=== PATIENT | female | born 1990 | race Two or more races ===

== ENCOUNTER 2017-01-05 12:36 | Outpatient (CLI) | payer OTHER ==
[~2017-01-05] VITALS: Ht 167.6 cm; Wt 75.1 kg
[~2017-01-05 12:36] MED LIST: ACET500C5 PO
[2017-01-05 12:45] VITALS: BP 120/75; PULSE 93; RESP 16; Ht 167.6 cm; Wt 75.1 kg
[2017-01-05 13:27] LABS: ADD UMIC YES; URINE BILIRUBIN (Dip) NEGATIVE (NEGATIVE); URINE BLOOD (Dip) NEGATIVE (NEGATIVE); URINE COLOR LT. YELLOW (YELLOW); URINE GLUCOSE (Dip) NEGATIVE (NEGATIVE); URINE KETONES (Dip) NEGATIVE (NEGATIVE); URINE LEUKOCYTE ESTERASE (Dip) 1+ (NEGATIVE); URINE NITRITE (Dip) NEGATIVE (NEGATIVE); URINE TOTAL PROTEIN (Dip) NEGATIVE (NEGATIVE); URINE UROBILINOGEN (Dip) 0.2 E.U./dL (0.1-1.0)
[2017-01-05 13:44] LABS: URINE RBCS NONE SEEN /HPF (0)
[2017-01-05 13:45] LABS: BACTERIA,URINE FEW
[2017-01-05 13:48] LABS: ADD SCAN DIFF NO
--- NOTE | 2017-01-05 13:56 | RADRPT ---
PROCEDURE: OB ultrasound for biophysical profile CLINICAL INDICATION: labor TECHNIQUE: Multiple sonographic images of the pelvis were obtained. Transabdominal views of the g ravid uterus are available for review. The images were reviewed on a PACS workstation. COMPARISON: None FINDINGS: breathing movement = 2/2 tone = 2/2 motion = 2/2 DENZEL = 2/2 DENZEL = 15.4 cm Single live intrauterine with cardiac activity of 126 bpm. position is cephal ic. The placenta is left lateral. The cervix is closed with a length of 4.0 cm. IMPRESSION: 1. Single live intrauterine gestation. 2. Biophysical profile = /8. 3. DENZEL = 15.4 cm. 4. The cervix is closed with a length of 4.0 cm. RPTAT: HH .Chandrika Genao MD, Date Time Electronically viewed and signed by .Chandrika Genao MD, on 01/05/2017 13:55 .G/
[2017-01-05 14:05] LABS: BASOPHILS % 0.1 % (0.0-2.0); EOSINOPHILS # 0.1 10^3/ul (0.0-0.5); EOSINOPHILS % 0.8 % (0.0-7.0); HEMATOCRIT 34.8 % (37.0-47.0); LYMPHOCYTES # 1.9 10^3/ul (0.8-2.9); LYMPHOCYTES % 17.7 % (15.0-51.0); MEAN CORPUSCULAR HEMOGLOBIN 26.3 pg (29.0-33.0); MEAN CORPUSCULAR HGB CONC 31.6 g/dl (32.0-37.0); MEAN CORPUSCULAR VOLUME 83.1 fl (82.0-101.0); MEAN PLATELET VOLUME 9.8 fl (7.4-10.4); MONOCYTE # 0.7 10^3/ul (0.3-0.9); MONOCYTES % 6.3 % (0.0-11.0); NEUTROPHIL # 8.1 10^3/ul (1.6-7.5); NEUTROPHILS % 74.1 % (39.0-77.0); PLATELET COUNT 382 10^3/UL (140-415); RED BLOOD COUNT 4.19 10^6/ul (4.20-5.40); RED CELL DISTRIBUTION WIDTH 13.2 % (11.5-14.5); WHITE BLOOD COUNT 10.9 10^3/ul (4.8-10.8)
[2017-01-05 14:08] LABS: ALBUMIN 3.9 g/dl (3.3-4.9); ALBUMIN/GLOBULIN RATIO 1.3; BILIRUBIN,INDIRECT 0.1 mg/dl (0-1.1); BILIRUBIN,TOTAL 0.1 mg/dl (0.2-1.3); CALCIUM 9.1 mg/dl (8.4-10.2); CREATININE 0.5 mg/dl (0.44-1.00); POTASSIUM 4.5 mmol/L (3.5-5.1); TOTAL PROTEIN 6.9 g/dl (6.1-8.1)
--- NOTE | 2017-01-05 15:48 | TRIAGE ---
OB Triage Datetime Report Generated by CPN: 01/05/2017 15:47 Datetime: 01/05/2017 15:23 Pattern: Normal: <= 5 Contractions in 10 Minutes Contraction Comments: no uc Heart Rate FHR Baseline Rate: 135 Monitor Mode: External US Variability: Moderate 6-25 bpm Accelerations: 15X15 Decelerations: None Category: Category I Pain Assessment Pain Presence: None/Denies Pain Type: N/A Datetime: 01/05/2017 15:00 Labor Evaluation Frequency: occ Monitor Mode: External Duration (sec)2399: 30-40 Quality: Mild Pattern: Normal: <= 5 Contractions in 10 Minutes Resting Tone [place]: Relaxed Heart Rate FHR Baseline Rate: 125 Monitor Mode: External US Variability: Moderate 6-25 bpm Accelerations: 15X15 Decelerations: None Category: Category I Pain Assessment Pain Presence: None/Denies Pain Type: N/A Datetime: 01/05/2017 13:39 Pattern: Normal: <= 5 Contractions in 10 Minutes Resting Tone [place]: Relaxed Contraction Comments: NO UC Heart Rate FHR Baseline Rate: 135 Monitor Mode: External US Variability: Moderate 6-25 bpm Accelerations: 15X15 Decelerations: None Category: Category I Pain Assessment Comments: pain @ lower back, RLQ Datetime: 01/05/2017 12:49 Assessment Type: Triage Maternal Assessment Level of Consciousness: Fully Conscious DTR's/Clonus: DTRs 2+; No Clonus Headache: Denies Blurred Vision: No Respiratory Effort: Unlabored; Regular Rhythm; Equal Expansion Breath Sounds, Left: Clear and Equal Breath Sounds, Right: Clear and Equal Nausea/Vomiting: Denies RUQ Epigastric Pain: Denies Facial Edema: None Fall Risk Assessment History of Falling: (0) No Secondary Diagnosis: (0) No Ambulatory Aid: (0) Bedrest/Nurse Assist IV Therapy: (0) No Gait: (0) Normal/Bedrest/Immobile Mental Status: (0) Oriented to Own Ability Fall Score: 0 Fall Risk Score Definition: No Risk: No action required Datetime: 01/05/2017 12:48 EGA: 30.6 Datetime: 01/05/2017 12:46 Time of Arrival: 01/05/2017 12:33 Arrived By: Ambulatory Arrived From: Home Chief Complaint: pt. came to hospital c/o RLQ pain since 1100am, pain level 10/10, q 10mins apart, also c/o lower back start now Movement: Present Rupture of Membranes: Denies Vaginal Bleeding: None Vaginal Discharge: Denies Recent Sexual Intercouse: Denies Abdominal Trauma: Not Applicable Patient Complaints: Other Time Provider Notified: 01/05/2017 12:57 Provider Notified: Initial Plan: r/o ptl, cbc, cmp, ua, u/s for bpp, cxl. po hydration
--- NOTE | 2017-01-05 16:58 | QN ---
Documentation Comment iup 30 weeks co of abd pain vss exam wnl us wnl nst reacitive a/p iup 30 weeks false labor dc [place] HERBERTH JEAN MD Jan 05, 2017 16:58
== END 2017-01-05 16:00 | disposition home or self-care (01) ==
LOC: OBT 12:36 → L-D 12:37 → OBT 16:00
PROVIDERS: ATTEND Obstetrics & Gynecology
DX: O26.893 Other specified pregnancy related conditions, third trimester (principal); R10.9 Unspecified abdominal pain; Z3A.30 30 weeks gestation of pregnancy
CPT/HCPCS: 36415; 76817; 76818; 80053; 81001; 85025; 87086; Z7500; G0463

== ENCOUNTER 2017-02-05 22:32 | Outpatient (CLI) | payer OTHER ==
[~2017-02-05] VITALS: Ht 167.6 cm; Wt 78.2 kg
[2017-02-05] MEDS ORDERED: PRENAT PO (23:46)
[2017-02-05] MEDS ORDERED: FERR134T PO (23:46)
[2017-02-06 00:09] LABS: ADD UMIC YES; UR ASCORBIC ACID NEGATIVE (NEGATIVE); UR BACTERIA FEW /HPF (NONE SEEN); UR BILIRUBIN (Dip) NEGATIVE (NEGATIVE); UR BLOOD (Dip) 1+ mg/dL (NEGATIVE); UR CLARITY SLIGHTLY CLOUDY (CLEAR); UR COLOR YELLOW (YELLOW); UR GLUCOSE (Dip) NEGATIVE (NEGATIVE); UR KETONES (Dip) NEGATIVE (NEGATIVE); UR LEUKOCYTE ESTERASE (Dip) 3+ Leu/ul (NEGATIVE); UR NITRITE (Dip) NEGATIVE (NEGATIVE); UR RBC 3 /HPF (0-5); UR SPECIFIC GRAVITY (Dip) 1.004 (1.003-1.030); UR SQUAMOUS EPITHELIAL CELL FEW /HPF (FEW); UR TOTAL PROTEIN (Dip) NEGATIVE (NEGATIVE); UR UROBILINOGEN (Dip) NEGATIVE (NEGATIVE)
[2017-02-06 00:16] LABS: ADD SCAN DIFF NO
[2017-02-06 00:17] LABS: BASOPHILS % 0.2 % (0.0-2.0); EOSINOPHILS # 0.1 10^3/ul (0.0-0.5); EOSINOPHILS % 1.1 % (0.0-7.0); HEMOGLOBIN 10.1 g/dl (12.0-16.0); LYMPHOCYTES # 2.2 10^3/ul (0.8-2.9); LYMPHOCYTES % 23.9 % (15.0-51.0); MEAN CORPUSCULAR HEMOGLOBIN 25.5 pg (29.0-33.0); MEAN CORPUSCULAR HGB CONC 31.6 g/dl (32.0-37.0); MEAN CORPUSCULAR VOLUME 80.8 fl (82.0-101.0); MEAN PLATELET VOLUME 10.1 fl (7.4-10.4); MONOCYTE # 0.6 10^3/ul (0.3-0.9); MONOCYTES % 6.6 % (0.0-11.0); NEUTROPHIL # 6.2 10^3/ul (1.6-7.5); NEUTROPHILS % 67.1 % (39.0-77.0); PLATELET COUNT 341 10^3/UL (140-415); RED BLOOD COUNT 3.96 10^6/ul (4.20-5.40); RED CELL DISTRIBUTION WIDTH 14.4 % (11.5-14.5); WHITE BLOOD COUNT 9.3 10^3/ul (4.8-10.8)
[2017-02-06 00:44] LABS: ALBUMIN 3.4 g/dl (3.3-4.9); ALBUMIN/GLOBULIN RATIO 1.17; BILIRUBIN,INDIRECT 0.2 mg/dl (0-1.1); BILIRUBIN,TOTAL 0.2 mg/dl (0.2-1.3); CALCIUM 9.3 mg/dl (8.4-10.2); CREATININE 0.51 mg/dl (0.44-1.00); POTASSIUM 3.7 mmol/L (3.5-5.1); TOTAL PROTEIN 6.3 g/dl (6.1-8.1)
--- NOTE | 2017-02-06 01:17 | RADRPT ---
PROCEDURE: OB ultrasound for biophysical profile CLINICAL INDICATION: well-being. TECHNIQUE: Multiple sonographic images of the gravid uterus performed. The images were reviewed on a PACS workstation. COMPARISON: 01/05/2017 FINDINGS: A single live intrauterine is identified with heart rate of 143 bpm. Fet us is in a cephalic presentation. Placenta is located posteriorly. Biophysical profile: breathing movement = 2/2 tone = 2/2 motion = 2/2 DENZEL = 2/2 DENZEL = 12.0 cm. IMPRESSION: 1. Single live intrauterine gestation. 2. Biophysical profile = 8/8. 3. DENZEL = 12.0 cm. RPTAT: HMVK .Oj Arnett MD, Date Time Electronically viewed and signed by .Oj Arnett MD, MD on 02/06/2017 01:16 .K/
--- NOTE | 2017-02-06 01:18 | RADRPT ---
PROCEDURE: US OB. CLINICAL INDICATION: labor. TECHNIQUE: Multiple sonographic images of the pelvis were obtained. Transabdominal imaging only w as performed. The images were reviewed on a PACS workstation. COMPARISON: 01/05/2017. FINDINGS: Single live intrauterine is identified. Cardiac activity is present with 131 beats per mi [place]. There is a vertex presentation. Measurements: BPD = 35 weeks 1 day. HC = 34 weeks 4 days. AC = 37 weeks 0 days. FL = 36 weeks 1 day. Estimated gestational age of approximately 35 weeks 5 days. The estimated date of delivery is 03/08/2017. The EFW = 2899 g which is at the 76 percentile. The placenta is posterior. IMPRESSION: Single live intrauterine gestation of approximately 35 weeks 5 days. RPTAT: HMVK .Oj Arnett MD, MD Date Time Electronically viewed and signed by .Oj Arnett MD, on 02/06/2017 01:18 .K/
--- NOTE | 2017-02-06 03:27 | PN ---
Triage Information Date/Time February 05, 2017 Weeks of Gestation 35 weeks : 3 Para: 1 Diabetes: none Hypertention: none Additional information 26-year-old with IUP at 35 weeks and 2 days presented with complaint of decreased movement as well as cramping and pain. She also complaining of itching all over her body without any rash for the last 2 days. She could not sleep due to constant itching including palms and soles. She drank fluid still was not feeling movement. Denies any leaking of fluid or vaginal bleeding. Reports she was told that she has a high pulse during her visits. She also complaining of some shortness of breath. Denies any chest pain. Reports occasional dizziness. Reports history of anemia. Currently taking vitamin and iron twice a day. Objective Heart Rate: 130's Contractions: None Exam General appearance: Alert and oriented 4. Patient does not appear to be in any acute distress. Abdomen: Soft, gravid, nontender, fundal height consistent with gestational age. NST: Category 1 Occasional contraction seen on the monitor. Skin: No rash over the body Extremities: No calf tenderness, no click no edema Lungs: Clear to auscultation bilaterally CV: RRR Hematology - 72 Hrs Test 02/05/17 00:05 White Blood Count 9.310^3/ul (4.8-10.8) Red Blood Count 3.9610^6/ul (4.20-5.40) L Hemoglobin 10.1g/dl (12.0-16.0) L Hematocrit 32.0% (37.0-47.0) L Mean Corpuscular Volume 80.8fl (82.0-101.0) L Mean Corpuscular Hemoglobin 25.5pg (29.0-33.0) L Mean Corpuscular Hemoglobin Concent 31.6g/dl (32.0-37.0) L Red Cell Distribution Width 14.4% (11.5-14.5) Platelet Count 30992^3/UL (140-415) Mean Platelet Volume 10.1fl (7.4-10.4) Neutrophils % 67.1% (39.0-77.0) Lymphocytes % 23.9% (15.0-51.0) Monocytes % 6.6% (0.0-11.0) Eosinophils % 1.1% (0.0-7.0) Basophils % 0.2% (0.0-2.0) Nucleated Red Blood Cells % 0.0/100WBC (0.0-0.0) Neutrophils # 6.210^3/ul (1.6-7.5) Lymphocytes # 2.210^3/ul (0.8-2.9) Monocytes # 0.610^3/ul (0.3-0.9) Eosinophils # 0.110^3/ul (0.0-0.5) Basophils # 0.010^3/ul (0.0-0.1) Nucleated Red Blood Cells # 0.010^3/ul (0.0-0.0) Chemistry Test 02/05/17 00:05 Sodium Level 137mmol/L (135-144) Potassium Level 3.7mmol/L (3.5-5.1) Chloride Level 103mmol/L (97-110) Carbon Dioxide Level 22mmol/L (21-31) Anion Gap 16 (8-16) Blood Urea Nitrogen 6mg/dl (7-20) L Creatinine 0.51mg/dl (0.44-1.00) Glucose Level 97mg/dl (70-220) Calcium Level 9.3mg/dl (8.4-10.2) Total Bilirubin 0.2mg/dl (0.2-1.3) Direct Bilirubin 0.00mg/dl (0.00-0.20) Indirect Bilirubin 0.2mg/dl (0-1.1) Aspartate Amino Transf (AST/SGOT) 16IU/L (15-46) Alanine Aminotransferase (ALT/SGPT) 25IU/L (13-69) Alkaline Phosphatase 226IU/L (42-121) H Total Protein 6.3g/dl (6.1-8.1) Albumin 3.4g/dl (3.3-4.9) Globulin 2.90g/dl (1.3-3.2) Albumin/Globulin Ratio 1.17 Results/Medications Result Diagram: 02/05/17 0005 02/05/17 0005 Results 24 hrs Laboratory Tests Test 02/05/17 22:40 Urine Color YELLOW Urine Clarity SLIGHTLY CLOUDY A Urine pH 7.0 Urine Specific [place] 1.004 Urine Ketones NEGATIVE Urine Nitrite NEGATIVE Urine Bilirubin NEGATIVE Urine Urobilinogen NEGATIVE Urine Leukocyte Esterase 3+ H Urine Microscopic RBC 3 Urine Microscopic WBC 24 H Urine Squamous Epithelial Cells FEW Urine Bacteria FEW A Urine Hemoglobin 1+ H Urine Glucose NEGATIVE Urine Total Protein NEGATIVE Imaging Results PROCEDURE: OB ultrasound for biophysical profile CLINICAL INDICATION: well-being. TECHNIQUE: Multiple sonographic images of the gravid uterus performed. The images were reviewed on a PACS workstation. COMPARISON: 01/05/2017 FINDINGS: A single live intrauterine is identified with heart rate of 143 bpm. Fetus is in a cephalic presentation. Placenta is located posteriorly. Biophysical profile: breathing movement = 2/2 tone = 2/2 motion = 2/2 DENZEL = 2/2 DENZEL = 12.0 cm. IMPRESSION: 1. Single live intrauterine gestation. 2. Biophysical profile = 8/8. 3. DENZEL = 12.0 cm. RPTAT: HMVK PROCEDURE: US OB. CLINICAL INDICATION: labor. TECHNIQUE: Multiple sonographic images of the pelvis were obtained. Transabdominal imaging only was performed. The images were reviewed on a PACS workstation. COMPARISON: 01/05/2017. FINDINGS: Single live intrauterine is identified. Cardiac activity is present with 131 beats per minute. There is a vertex presentation. Measurements: BPD = 35 weeks 1 day. HC = 34 weeks 4 days. AC = 37 weeks 0 days. FL = 36 weeks 1 day. Estimated gestational age of approximately 35 weeks 5 days. The estimated date of delivery is 03/08/2017. The EFW = 2899 g which is at the 76 percentile. The placenta is posterior. IMPRESSION: Single live intrauterine gestation of approximately 35 weeks 5 days. RPTAT: HMVK Assessment/Plan IUP at 35 weeks and 2 days, not in labor Decreased movement, NST reactive, category 1, BPP: 8/8 Whole body itching without any rash including palms. Cannot rule out cholestasis of . LFTs normal. Bile acids were sent and pending Shortness of breath,mild tachycardia related to anemia. Oxygen saturation within normal limits. Lungs clear to auscultation. No evidence of DVT or PE. Advised the patient to continue vitamin and iron twice a day Patient was feeling movement after hydration urine consistent with UTI, keflex QID x 7 days DC home. Follow-up in 2 days with triage for NST/BPP Follow-up with bile acids. It is sent out. Will be available in 5 days. Next Patient will be started on ursodiol 300 mg p.o. 3 times daily to continue until have the results. Continue testing twice a week until he is also available. Follow-up with her OB office in 1-2 days after discharge from the hospital with a strict labor precaution and kick count discussed with the patient. Next Patient verbalized understanding. STEPH SHIPLEY MD Feb 06, 2017 03:27
--- NOTE | 2017-02-06 05:26 | TRIAGE ---
OB Triage Datetime Report Generated by CPN: 02/06/2017 05:25 Datetime: 02/05/2017 22:40 Time of Arrival: 02/05/2017 22:27 EGA: 35.2 Arrived By: Wheelchair Arrived From: Home Chief Complaint: c/i cramping, vag pressure, DFM, and generalized itching Movement: Decreased Contractions: Irregular Time Contractions Began: 02/05/2017 16:00 Rupture of Membranes: Denies Vaginal Bleeding: None Vaginal Discharge: Denies Recent Sexual Intercouse: Denies Abdominal Trauma: Not Applicable Patient Complaints: Cramping; Back Pain; Other Time Provider Notified: 02/05/2017 23:20 Provider Notified: Dr Ramachandran Initial Plan: EFM,SVE, PO hydration, CMP,bile caids, CBC, UA, BPP, EFW Datetime: 01/05/2017 12:49 Fall Risk Assessment Fall Score: 0 Fall Risk Score Definition: No Risk: No action required Datetime: 01/05/2017 12:48 EGA: 30.6
[2017-02-09 12:10] LABS: CHENODEOXYCHOLIC ACID 3.4 umol/L (< OR = 3.1); CHOLIC ACID 1.7 umol/L (< OR = 1.8); DEOXYCHOLIC ACID <0.5 umol/L (< OR = 2.4); TOTAL BILE ACIDS 5.1 umol/L (< OR = 6.8)
== END 2017-02-06 03:05 | disposition home or self-care (01) ==
LOC: OBT 22:32 → L-D 22:32 → OBT 02-06 03:05
PROVIDERS: ATTEND Obstetrics & Gynecology
DX: O60.03 Preterm labor without delivery, third trimester (principal); Z3A.35 35 weeks gestation of pregnancy
CPT/HCPCS: 36415; 76815; 76818; 80053; 80076; 81001; 83789; 85025; Z7500; G0463

== ENCOUNTER 2017-02-09 15:23 | Inpatient (IN) | payer OTHER ==
[~2017-02-09] VITALS: Ht 167.6 cm; Wt 79.3 kg
[~2017-02-09 15:23] MED LIST changes: -ACET500C5 PO; +FERR134T PO; +PRENAT PO
[2017-02-09 15:43] VITALS: BP 117/60; PULSE 98; Ht 167.6 cm; Wt 79.3 kg
[2017-02-09] MEDS ORDERED: URSO300C3 PO (15:48)
--- NOTE | 2017-02-09 16:23 | RADRPT ---
PROCEDURE: US OB biophysical profile. CLINICAL INDICATION: decreased movements, abdominal pain TECHNIQUE: Multiple sonographic images of the pelvis were obtained. The images were reviewed on a PACS workstation. COMPARISON: 02/06/2017 FINDINGS: There is a single viable intrauterine gestation. Cardiac activity is present with 142 beats per min [place]. There is a vertex presentation. The placenta is posterior. There is no evidence of placental abruption. There is a normal amount of amniotic fluid with an DENZEL = 8.1 cm. Biophysical profile: movement 2/2 tone 2/2. breathing 2/2 DENZEL 2/2 Total 03/13 RPTAT: AA . IMPRESSION: Normal biophysical profile. . .Pablito Sesay MD, MD Date Time Electronically viewed and signed by .Pablito Sesay MD, MD on 02/09/2017 16:23 .S/
--- NOTE | 2017-02-09 17:55 | HP ---
Date/Time of Note Date/Time of Note DATE: 02/09/17 TIME: 17:53 OB - History Hx of Present Free Text/Dictation @35+wks GA with DENZEL 8 and nick every 3 min : 3 Para: 1 Care: Good Care Ultrasounds: Normal mid trimester US Obstetrical Complications: None Medical Complications: None Past Family/Social History * Past Medical, Surgical, Family and Obstetric Histories reviewed from chart. OB Admission Exam Vital Signs Vital Signs Vital Signs Date Time Temp Pulse Resp B/P Pulse Ox O2 Delivery O2 Flow Rate FiO2 02/09/17 15:43 98.1 98 117/60 Physical Exam Abdomen: WNL Cervical Dilatation: 1cm Effacement: 75% Station: -3 Membranes: Intact Heart Rate: 140's Accelerations: Accelerations Present Decelerations: No Decelerations Varibility: Moderate Contractions on Admission: < 5 Minutes Apart OB Assessment/Plan Reason for admission: observation Plan: Expectant Management Other plan: 1.IV hydration 2.Steroids 3.Continius monitoring JUDITH JIMÉNEZ M.D. Feb 09, 2017 17:55
[2017-02-09] MEDS: LACTATED RINGER'S 1,000 ML IV SCH ×2 (18:19→23:51)
[2017-02-09 18:33] LABS: ADD SCAN DIFF NO
[2017-02-09 18:34] LABS: BASOPHILS % 0.2 % (0.0-2.0); EOSINOPHILS # 0.1 10^3/ul (0.0-0.5); HEMATOCRIT 31.8 % (37.0-47.0); HEMOGLOBIN 10.2 g/dl (12.0-16.0); LYMPHOCYTES # 1.9 10^3/ul (0.8-2.9); LYMPHOCYTES % 20.8 % (15.0-51.0); MEAN CORPUSCULAR HEMOGLOBIN 25.3 pg (29.0-33.0); MEAN CORPUSCULAR HGB CONC 32.1 g/dl (32.0-37.0); MEAN CORPUSCULAR VOLUME 78.9 fl (82.0-101.0); MEAN PLATELET VOLUME 10.2 fl (7.4-10.4); MONOCYTE # 0.6 10^3/ul (0.3-0.9); MONOCYTES % 6.7 % (0.0-11.0); NEUTROPHIL # 6.5 10^3/ul (1.6-7.5); NEUTROPHILS % 70.5 % (39.0-77.0); NUCLEATED RED BLOOD CELLS% 0.2 /100WBC (0.0-0.0); PLATELET COUNT 325 10^3/UL (140-415); RED BLOOD COUNT 4.03 10^6/ul (4.20-5.40); RED CELL DISTRIBUTION WIDTH 14.3 % (11.5-14.5); WHITE BLOOD COUNT 9.2 10^3/ul (4.8-10.8)
[2017-02-09 18:49] LABS: INR 0.95; PROTIME 12.7 Sec (12.2-14.2)
[2017-02-09 18:50] LABS: PARTIAL THROMBOPLASTIN TIME 25.1 Sec (25.0-35.0)
[2017-02-09] MEDS: BETAMET NA PHOS/AC(6 MG/ML) 5ML INJ IM SCH (18:51)
[2017-02-09 18:55] LABS: ADD UMIC YES; UR ASCORBIC ACID NEGATIVE (NEGATIVE); UR BACTERIA MODERATE /HPF (NONE SEEN); UR BILIRUBIN (Dip) NEGATIVE (NEGATIVE); UR BLOOD (Dip) NEGATIVE (NEGATIVE); UR CLARITY SLIGHTLY CLOUDY (CLEAR); UR COLOR STRAW (YELLOW); UR GLUCOSE (Dip) NEGATIVE (NEGATIVE); UR KETONES (Dip) NEGATIVE (NEGATIVE); UR LEUKOCYTE ESTERASE (Dip) 3+ Leu/ul (NEGATIVE); UR NITRITE (Dip) NEGATIVE (NEGATIVE); UR RBC 2 /HPF (0-5); UR SPECIFIC GRAVITY (Dip) 1.005 (1.003-1.030); UR SQUAMOUS EPITHELIAL CELL MODERATE /HPF (FEW); UR TOTAL PROTEIN (Dip) NEGATIVE (NEGATIVE); UR UROBILINOGEN (Dip) NEGATIVE (NEGATIVE)
[2017-02-09] MEDS: URSODIOL 300 MG CAP PO SCH (21:44)
[2017-02-10] MEDS: LACTATED RINGER'S 1,000 ML IV SCH (07:29)
[2017-02-10] MEDS: URSODIOL 300 MG CAP PO SCH ×2 (09:58→17:31)
--- NOTE | 2017-02-10 10:20 | RADRPT ---
PROCEDURE: US OB biophysical profile. CLINICAL INDICATION: decreased movements, low DENZEL TECHNIQUE: Multiple sonographic images of the pelvis were obtained. The images were reviewed on a PACS workstation. COMPARISON: Yesterday FINDINGS: There is a single viable intrauterine gestation. Cardiac activity is present with 137 beats per min [place]. There is a vertex presentation. The placenta is fundal. There is no evidence of placental abruption. There is a normal amount of amniotic fluid with an DENZEL = 11.5 cm. Biophysical profile: movement 2/2 tone 2/2. breathing 2/2 DENZEL 2/2 Total 03/13 RPTAT: AA . IMPRESSION: Normal biophysical profile. . .Pablito Sesay MD, MD Date Time Electronically viewed and signed by .Pablito Sesay MD, MD on 02/10/2017 10:20 .S/
--- NOTE | 2017-02-10 14:49 | QN ---
Documentation Comment patient is seen by the bedside +FM No VB No LOF NoCTXs NST reassuring BPP 03/13 pelvic closed --->dischage with instruction after receiving the second dose of Beta JUDITH JIMÉNEZ M.D. Feb 10, 2017 14:49
[2017-02-10] MEDS: BETAMET NA PHOS/AC(6 MG/ML) 5ML INJ IM SCH (18:29)
== END 2017-02-10 19:00 | disposition home or self-care (01) | DRG 778 ==
LOC: L-D 15:23 → OBT 15:23 → L-D 15:28 → OBT 17:50 → OBG 17:57
PROVIDERS: ADMIT Obstetrics & Gynecology; ATTEND Obstetrics & Gynecology
DX: O60.03 Preterm labor without delivery, third trimester (principal); Z3A.35 35 weeks gestation of pregnancy
CPT/HCPCS: 76818; 81001; 85025; 85610; 85730; 86592; 87086; G0463; J0702; J7120

== ENCOUNTER 2017-02-12 09:35 | Outpatient (CLI) | payer OTHER ==
[~2017-02-12] VITALS: Ht 167.6 cm; Wt 78.5 kg
[2017-02-12 09:45] VITALS: Ht 167.6 cm; Wt 78.5 kg
[2017-02-12] MEDS ORDERED: PRENAT PO (09:45)
[2017-02-12 09:46] VITALS: BP 122/62; PULSE 107
[2017-02-12] MEDS ORDERED: URSO300C21 PO (09:49)
[2017-02-12] MEDS ORDERED: CEPH500C PO (09:50)
--- NOTE | 2017-02-12 10:40 | RADRPT ---
PROCEDURE: OB ultrasound for biophysical profile with DENZEL. CLINICAL INDICATION: Decreased movements. Low DENZEL. TECHNIQUE: Multiple sonographic images of the gravid uterus were obtained. The images were review ed on a PACS workstation. COMPARISON: Exam is 02/10/2017. FINDINGS: breathing movement = 2/2 tone = 2/2 motion = 2/2 DENZEL = 2/2 There is a single viable intrauterine gestation with cardiac and a heart rate of 140 bpm. Ther e is a cephalic presentation and a posterior, grade II placenta. There is no evidence of abruption or placenta previa. DENZEL = 9.4 a cm IMPRESSION: 1. Single viable intrauterine gestation. 2. Biophysical profile = 03/13. 3. DENZEL = 9.48 cm. RPTAT: GG .Froy Walsh MD, Date Time Electronically viewed and signed by .Froy Walsh MD, MD on 02/12/2017 10:39 .P/
--- NOTE | 2017-02-12 14:58 | QN ---
Documentation Comment g1 iup 36 weeks cholestatis of pregancy no complaints vss nst reacitve a/p iup 36 weeks cholestasis of dc [place] HERBERTH JEAN MD Feb 12, 2017 14:58
== END 2017-02-12 11:29 | disposition home or self-care (01) ==
LOC: OBT 09:35 → L-D 09:37 → OBT 11:29
PROVIDERS: ATTEND Obstetrics & Gynecology
DX: O26.613 Liver and biliary tract disorders in pregnancy, third trimester (principal); K83.1 Obstruction of bile duct; Z3A.36 36 weeks gestation of pregnancy
CPT/HCPCS: 76818; Z7500; G0463

== ENCOUNTER 2017-02-15 08:44 | Outpatient (CLI) | payer OTHER ==
[~2017-02-15] VITALS: Ht 167.6 cm; Wt 78.6 kg
[~2017-02-15 08:44] MED LIST changes: +CEPH500C PO; -FERR134T PO; +URSO300C21 PO
[2017-02-15 08:55] VITALS: BP 113/74; PULSE 120; RESP 18
[2017-02-15 08:57] VITALS: Ht 167.6 cm; Wt 78.6 kg
--- NOTE | 2017-02-15 09:22 | RADRPT ---
PROCEDURE: US OB biophysical profile. CLINICAL INDICATION: decreased movements, abdominal pain TECHNIQUE: Multiple sonographic images of the pelvis were obtained. The images were reviewed on a PACS workstation. COMPARISON: 02/12/2017 FINDINGS: There is a single viable intrauterine gestation. Cardiac activity is present with 152 beats per min [place]. There is a vertex presentation. The placenta is posterior. There is no evidence of placental abruption. There is a normal amount of amniotic fluid with an DENZEL = 11.5 cm. Biophysical profile: movement 2/2 tone 2/2. breathing 2/2 DENZEL 2/2 Total 03/13 RPTAT: AA . IMPRESSION: Normal biophysical profile. . .Pablito Sesay MD, MD Date Time Electronically viewed and signed by .Pablito Sesay MD, MD on 02/15/2017 09:22 .S/
[2017-02-15 11:10] LABS: ALBUMIN 3.8 g/dl (3.3-4.9); ALBUMIN/GLOBULIN RATIO 1.22; BILIRUBIN,INDIRECT 0.1 mg/dl (0-1.1); BILIRUBIN,TOTAL 0.1 mg/dl (0.2-1.3); CALCIUM 9.2 mg/dl (8.4-10.2); CREATININE 0.5 mg/dl (0.44-1.00); POTASSIUM 3.8 mmol/L (3.5-5.1); TOTAL PROTEIN 6.9 g/dl (6.1-8.1)
--- NOTE | 2017-02-15 13:23 | CONS ---
Date/Time of Note Date/Time of Note DATE: 02/15/17 TIME: :13 Consultation Date/Type/Reason Admit Date/Time February 15, 2070 OB triage visit Reason for Consultation This patient is a 26 years old 3 para 1 1 with estimated date of confinement March 10, 2017 which makes her 36 weeks and 5 days now She is an established patient with cholestasis of ,currently placed on ursodiol 300 mg 3 times a day She is still complaining of itching all over her body especially on her hand and chest she was discharged to triage for further monitoring on examination . Patient is a well-developed well-nourished lady near term .Does have complained of itching on the palm of her hand and other part of her body Her general vital signs are normal with blood pressure 113/74 pulse rate 120 respiration 18 temperature 98.0 Constitutional: No chills, No diaphoresis, No disoriented, No febrile, No improved, No no complaints, No other, No poor po, No requiring IVF, No requiring O2 Eyes: No discharge, No no complaints, No other, No pain, No redness, No visual change ENT: No bleeding, No congestion, No discharge, No dysphagia, No no complaints, No other, No pain, No sore throat Respiratory: No cough, No no complaints, No other, No pain, No pleuritic pain, No shortness of breath, No sputum, No wheezing Cardiovascular: No chest pain, No edema, No lightheadedness, No no complaints, No orthopenea, No other, No palpitations, No paroxysmal nocturnal dyspnea Gastrointestinal: No blood, No constipation, No decreased appetite, No diarrhea , No flatus, No nausea, No no complaints, No other, No pain, No passing stool, No vomiting Genitourinary: other (Pelvic exam was not performed due to the fact that she does not have any contractions), No bleeding, No discharge, No dysuria, No flank pain, No hematuria, No no complaints Musculoskeletal: No back pain, No bone/joint pain, No neck pain, No no complaints, No other, No restricted range of motion, No swelling Skin: other (Pruritus of her palm of her hand with sole of her foot as well as her chest area), No bruising, No erythema, No laceration, No no complaints, No pruritis, No rash, No skin lesions Neurologic: No confusion, No dizziness, No focal-weakness, No headache, No no complaints, No other, No seizure, No syncope Endocrine: other (Knee-jerk reflexes normal) Additional Comments Laboratory Tests Test 02/15/17 10:29 Sodium Level 132mmol/L Potassium Level 3.8mmol/L Chloride Level 102mmol/L Carbon Dioxide Level 24mmol/L Anion Gap 10 Blood Urea Nitrogen 6mg/dl Creatinine 0.50mg/dl Glucose Level 103mg/dl Calcium Level 9.2mg/dl Total Bilirubin 0.1mg/dl Direct Bilirubin 0.00mg/dl Indirect Bilirubin 0.1mg/dl Aspartate Amino Transf (AST/SGOT) 18IU/L Alanine Aminotransferase (ALT/SGPT) 24IU/L Alkaline Phosphatase 220IU/L Total Protein 6.9g/dl Albumin 3.8g/dl Globulin 3.10g/dl Albumin/Globulin Ratio 1.22 She does have some itching in the palms of her hands and sole of her foot as well as in her chest area heart rate tracing is normal with fairly good variability and acceleration no decelerations . She does have occasional contractions but she dos not seem to be in active labor . Her lab studies and liver function tests are basically normal including electrolytes SGOT and SGPT, total bilirubin direct and indirect bilirubin are WNL.. on ultrasound study her DENZEL is 11.5 cm . The report is a single viable intrauterine gestation with heart rate of 152 bpm, in vertex presentation, placenta posterior biophysical profile 03/13 The result of these tests were given to Dr. Vanessa Social History Smoking Status: Never smoker Exam/Review of Systems Vital Signs Vitals Vital Signs Date Time Temp Pulse Resp B/P Pulse Ox O2 Delivery O2 Flow Rate FiO2 02/15/17 08:55 98.0 120 18 113/74 Room Air Results Result Diagram: 02/15/17 1029 Results 24 hrs Laboratory Tests Test 02/15/17 10:29 Sodium Level 132 L Potassium Level 3.8 Chloride Level 102 Carbon Dioxide Level 24 Anion Gap 10 Blood Urea Nitrogen 6 L Creatinine 0.50 Glucose Level 103 Calcium Level 9.2 Total Bilirubin 0.1 L Direct Bilirubin 0.00 Indirect Bilirubin 0.1 Aspartate Amino Transf (AST/SGOT) 18 Alanine Aminotransferase (ALT/SGPT) 24 Alkaline Phosphatase 220 H Total Protein 6.9 Albumin 3.8 Globulin 3.10 Albumin/Globulin Ratio 1.22 ELSI CHAUDHARY MD Feb 15, 2017 13:22
--- NOTE | 2017-02-15 13:50 | TRIAGE ---
OB Triage Datetime Report Generated by CPN: 02/15/2017 13:49 Datetime: 02/15/2017 13:01 Labor Evaluation Frequency: IRREG Monitor Mode: External Duration (sec)2399: 60-90 Pattern: Normal: <= 5 Contractions in 10 Minutes Resting Tone Gisela: Relaxed Heart Rate FHR Baseline Rate: 140 Monitor Mode: External US FHR Baseline Changes: No Baseline Change Variability: Moderate 6-25 bpm Accelerations: 15X15 Decelerations: None Category: Category I Datetime: 02/15/2017 11:59 Labor Evaluation Frequency: IRREG Monitor Mode: External Duration (sec)2399: 60-90 Pattern: Normal: <= 5 Contractions in 10 Minutes Resting Tone Gisela: Relaxed Heart Rate FHR Baseline Rate: 140 Monitor Mode: External US Variability: Moderate 6-25 bpm Accelerations: 15X15 Decelerations: None Category: Category I Datetime: 02/15/2017 09:41 Labor Evaluation Frequency: IRREG Monitor Mode: External Duration (sec)2399: 50-90 Pattern: Normal: <= 5 Contractions in 10 Minutes Resting Tone Gisela: Relaxed Heart Rate FHR Baseline Rate: 140 Monitor Mode: External US Variability: Moderate 6-25 bpm Accelerations: 15X15 Decelerations: None Category: Category I Datetime: 02/15/2017 09:29 Assessment Type: Admission Assessment Maternal Assessment Level of Consciousness: Fully Conscious DTR's/Clonus: DTRs 2+; No Clonus Headache: Denies Blurred Vision: No Respiratory Effort: Unlabored; Regular Rhythm; Equal Expansion Breath Sounds, Left: Clear and Equal Breath Sounds, Right: Clear and Equal Nausea/Vomiting: Denies RUQ Epigastric Pain: Denies Lower Extremities Edema: None Degree: None Upper Extremities Edema: None Degree: None Facial Edema: None Fall Risk Assessment History of Falling: (0) No Secondary Diagnosis: (0) No Ambulatory Aid: (0) Bedrest/Nurse Assist IV Therapy: (0) No Gait: (0) Normal/Bedrest/Immobile Mental Status: (0) Oriented to Own Ability Fall Score: 0 Fall Risk Score Definition: No Risk: No action required Datetime: 02/15/2017 09:13 Labor Evaluation Frequency: IRREG Monitor Mode: External Duration (sec)2399: 60-90 Pattern: Normal: <= 5 Contractions in 10 Minutes Resting Tone Gisela: Relaxed Heart Rate FHR Baseline Rate: 140 Monitor Mode: External US Variability: Minimal - Undetectable to <=5 bpm Decelerations: Variable Category: Category II Datetime: 02/15/2017 09:00 Time of Arrival: 02/15/2017 07:40 EGA: 36.5 Arrived By: Ambulatory Arrived From: Home Chief Complaint: ITCHING. H/ OF CHOLESTASIS. F/U NST/BPP Movement: Present Contractions: Irregular Rupture of Membranes: Denies Vaginal Bleeding: None Vaginal Discharge: Denies Recent Sexual Intercouse: Denies Abdominal Trauma: Not Applicable Patient Complaints: Cramping Time Provider Notified: 02/15/2017 09:36 Provider Notified: DR ALMONTE Initial Plan: TOCO/ US, BPP, CMP Datetime: 02/15/2017 08:49 Pain Assessment Pain Scale: 6 Pain Presence: Intermittent Pain Type: Cramping Pain Location: Abdomen Pain Relief Measures: Comfort Measures Datetime: 02/12/2017 11:17 Stage of : OB Triage Datetime: 02/12/2017 10:59 Labor Evaluation Frequency: OCCAS Monitor Mode: External Duration (sec)2399: 50-70 Pattern: Normal: <= 5 Contractions in 10 Minutes Resting Tone Gisela: Relaxed Heart Rate FHR Baseline Rate: 145 Monitor Mode: External US Variability: Moderate 6-25 bpm Accelerations: 10X10 Decelerations: None Category: Category I Pain Assessment Pain Scale: 0 Pain Presence: None/Denies Pain Type: N/A Pain Goal: 3 Pain Relief Measures: Comfort Measures Datetime: 02/12/2017 10:07 Stage of : OB Triage Datetime: 02/12/2017 09:59 Stage of : OB Triage Datetime: 02/12/2017 09:52 Stage of : OB Triage Assessment Type: Triage Time of Arrival: 02/12/2017 09:35 EGA: 36.2 Arrived By: Ambulatory Arrived From: Home Chief Complaint: f/u cholest Maternal Assessment Level of Consciousness: Fully Conscious DTR's/Clonus: DTRs 2+; No Clonus Headache: Denies Blurred Vision: No Respiratory Effort: Unlabored; Regular Rhythm; Equal Expansion Breath Sounds, Left: Clear and Equal Breath Sounds, Right: Clear and Equal Nausea/Vomiting: Denies RUQ Epigastric Pain: Denies Facial Edema: None Temperature Route: Axillary Fall Risk Assessment History of Falling: (0) No Secondary Diagnosis: (0) No Ambulatory Aid: (0) Bedrest/Nurse Assist IV Therapy: (0) No Gait: (0) Normal/Bedrest/Immobile Mental Status: (0) Oriented to Own Ability Fall Score: 0 Fall Risk Score Definition: No Risk: No action required Labor Evaluation Frequency: 0 Monitor Mode: External Resting Tone Gisela: Relaxed Heart Rate FHR Baseline Rate: 150 Monitor Mode: External US Variability: Minimal - Undetectable to <=5 bpm Decelerations: None Category: Category II Pain Assessment Pain Scale: 0 Pain Presence: None/Denies Pain Type: N/A Pain Goal: 3 Pain Relief Measures: Comfort Measures Datetime: 02/12/2017 09:42 Time of Arrival: 02/12/2017 09:35 EGA: 36.2 Arrived By: Ambulatory Arrived From: Home Chief Complaint: F/U CHOLESTASIS, DISCHARGED ON SUNDAY FROM 2 NE Movement: Present Contractions: Denies/Absent Rupture of Membranes: Denies Vaginal Bleeding: None Vaginal Discharge: Denies Recent Sexual Intercouse: Denies Abdominal Trauma: Not Applicable Patient Complaints: None Time Provider Notified: 02/12/2017 10:07 Provider Notified: ABUSLEME Initial Plan: MONITOR, BPP/DENZEL Datetime: 02/10/2017 18:34 Labor Evaluation Frequency: 0 Monitor Mode: External Resting Tone Gisela: Relaxed Heart Rate FHR Baseline Rate: 120 Monitor Mode: External US FHR Baseline Changes: No Baseline Change Variability: Moderate 6-25 bpm Accelerations: 15X15 Decelerations: None Category: Category I Datetime: 02/10/2017 18:00 Labor Evaluation Frequency: 0 Monitor Mode: External Resting Tone Gisela: Relaxed Heart Rate FHR Baseline Rate: 125 Monitor Mode: External US FHR Baseline Changes: No Baseline Change Variability: Moderate 6-25 bpm Accelerations: 15X15 Decelerations: None Category: Category I Datetime: 02/10/2017 17:00 Labor Evaluation Frequency: 0 Monitor Mode: External Resting Tone Gisela: Relaxed Heart Rate FHR Baseline Rate: 120 Monitor Mode: External US FHR Baseline Changes: No Baseline Change Variability: Moderate 6-25 bpm Accelerations: 15X15 Decelerations: None Category: Category I Datetime: 02/10/2017 16:36 Stage of : Antepartum Temperature Route: Oral Pain Assessment Pain Scale: 0 Pain Presence: None/Denies Datetime: 02/10/2017 16:32 Stage of : Antepartum Datetime: 02/10/2017 16:00 Labor Evaluation Frequency: 0 Monitor Mode: External Resting Tone Gisela: Relaxed Heart Rate FHR Baseline Rate: 150 Monitor Mode: External US FHR Baseline Changes: No Baseline Change Variability: Moderate 6-25 bpm Accelerations: 15X15 Decelerations: None Category: Category I Datetime: 02/10/2017 15:00 Labor Evaluation Frequency: 0 Monitor Mode: External Resting Tone Gisela: Relaxed Heart Rate FHR Baseline Rate: 140 Monitor Mode: External US FHR Baseline Changes: No Baseline Change Variability: Moderate 6-25 bpm Accelerations: 15X15 Decelerations: None Category: Category I Datetime: 02/10/2017 14:00 Labor Evaluation Frequency: 0 Monitor Mode: External Resting Tone Gisela: Relaxed Heart Rate FHR Baseline Rate: 130 Monitor Mode: External US FHR Baseline Changes: No Baseline Change Variability: Moderate 6-25 bpm Accelerations: 15X15 Decelerations: None Category: Category I Datetime: 02/10/2017 13:00 Labor Evaluation Frequency: 0 Monitor Mode: External Resting Tone Gisela: Relaxed Heart Rate FHR Baseline Rate: 130 Monitor Mode: External US FHR Baseline Changes: No Baseline Change Variability: Moderate 6-25 bpm Accelerations: 15X15 Decelerations: None Category: Category I Datetime: 02/10/2017 12:00 Monitor Mode: External Resting Tone Gisela: Relaxed Heart Rate FHR Baseline Rate: 130 Monitor Mode: External US FHR Baseline Changes: No Baseline Change Variability: Moderate 6-25 bpm Accelerations: 15X15 Decelerations: None Category: Category I Datetime: 02/10/2017 11:11 Stage of : Antepartum Datetime: 02/10/2017 11:08 Labor Evaluation Frequency: 0 Monitor Mode: External Resting Tone Gisela: Relaxed Heart Rate FHR Baseline Rate: 130 Monitor Mode: External US FHR Baseline Changes: No Baseline Change Variability: Moderate 6-25 bpm Accelerations: 15X15 Decelerations: None Category: Category I Datetime: 02/10/2017 10:00 Labor Evaluation Frequency: 0 Monitor Mode: External Resting Tone Gisela: Relaxed Heart Rate FHR Baseline Rate: 130 Monitor Mode: External US FHR Baseline Changes: No Baseline Change Variability: Moderate 6-25 bpm Accelerations: 15X15 Decelerations: None Category: Category I Datetime: 02/10/2017 09:00 Labor Evaluation Frequency: 0 Monitor Mode: External Resting Tone Gisela: Relaxed Heart Rate FHR Baseline Rate: 130 Monitor Mode: External US FHR Baseline Changes: No Baseline Change Variability: Moderate 6-25 bpm Accelerations: 15X15 Decelerations: None Category: Category I Datetime: 02/10/2017 08:59 Stage of : Antepartum Datetime: 02/10/2017 08:00 Labor Evaluation Frequency: 0 Monitor Mode: External Resting Tone Gisela: Relaxed Heart Rate FHR Baseline Rate: 130 Monitor Mode: External US FHR Baseline Changes: No Baseline Change Variability: Moderate 6-25 bpm Accelerations: 15X15 Decelerations: None Category: Category I Datetime: 02/10/2017 07:45 Assessment Type: Ongoing Assessment Maternal Assessment Level of Consciousness: Fully Conscious DTR's/Clonus: DTRs 2+; No Clonus Headache: Denies Blurred Vision: No Respiratory Effort: Unlabored; Regular Rhythm; Equal Expansion Breath Sounds, Left: Clear and Equal Breath Sounds, Right: Clear and Equal Nausea/Vomiting: Denies RUQ Epigastric Pain: Denies Lower Extremities Edema: None Degree: None Upper Extremities Edema: None Degree: None Facial Edema: None Fall Risk Assessment History of Falling: (0) No Secondary Diagnosis: (0) No Ambulatory Aid: (0) Bedrest/Nurse Assist IV Therapy: (20) Yes Gait: (0) Normal/Bedrest/Immobile Mental Status: (0) Oriented to Own Ability Fall Score: 20 Fall Risk Score Definition: No Risk: No action required Datetime: 02/10/2017 06:55 Labor Evaluation Frequency: occasional Monitor Mode: External Duration (sec)2399: 60-120 Quality: Mild Pattern: Normal: <= 5 Contractions in 10 Minutes Resting Tone Gisela: Relaxed Heart Rate FHR Baseline Rate: 130 Monitor Mode: External US FHR Baseline Changes: No Baseline Change Variability: Moderate 6-25 bpm Accelerations: 15X15 Decelerations: None Category: Category I Pain Assessment Pain Scale: 0 Pain Presence: None/Denies Pain Type: N/A Datetime: 02/10/2017 06:00 Labor Evaluation Frequency: occasional Monitor Mode: External Duration (sec)2399: 60-120 Quality: Mild Pattern: Normal: <= 5 Contractions in 10 Minutes Resting Tone Gisela: Relaxed Heart Rate FHR Baseline Rate: 120 Monitor Mode: External US FHR Baseline Changes: No Baseline Change Variability: Moderate 6-25 bpm Accelerations: 15X15 Decelerations: Variable Category: Category II Pain Assessment Pain Scale: 0 Pain Presence: None/Denies Pain Type: N/A Datetime: 02/10/2017 05:00 Labor Evaluation Frequency: none Monitor Mode: External Resting Tone Gisela: Relaxed Heart Rate FHR Baseline Rate: 120 Monitor Mode: External US FHR Baseline Changes: No Baseline Change Variability: Moderate 6-25 bpm Accelerations: 15X15 Decelerations: None Category: Category I Pain Assessment Pain Scale: 0 Pain Presence: None/Denies Pain Type: N/A Datetime: 02/10/2017 04:00 Labor Evaluation Frequency: irregular Monitor Mode: External Duration (sec)2399: 60-160 Quality: Mild Pattern: Normal: <= 5 Contractions in 10 Minutes Resting Tone Gisela: Relaxed Contraction Comments: pt denies feeling contractions Heart Rate FHR Baseline Rate: 120 Monitor Mode: External US FHR Baseline Changes: No Baseline Change Variability: Moderate 6-25 bpm Accelerations: 15X15 Decelerations: None Category: Category I Pain Assessment Pain Scale: 0 Pain Presence: None/Denies Pain Type: N/A Datetime: 02/10/2017 03:00 Stage of : Antepartum Labor Evaluation Frequency: irregular Monitor Mode: External Duration (sec)2399: 60-180 Quality: Mild Resting Tone Gisela: Relaxed Heart Rate FHR Baseline Rate: 115 Monitor Mode: External US FHR Baseline Changes: No Baseline Change Variability: Moderate 6-25 bpm Accelerations: 15X15 Decelerations: None Category: Category I Pain Assessment Pain Scale: 0 Pain Presence: None/Denies Pain Type: N/A Datetime: 02/10/2017 02:00 Labor Evaluation Frequency: X3 Monitor Mode: External Duration (sec)2399: 50 Quality: Mild Resting Tone Gisela: Relaxed Heart Rate FHR Baseline Rate: 130 Monitor Mode: External US FHR Baseline Changes: No Baseline Change Variability: Moderate 6-25 bpm Accelerations: 15X15 Decelerations: None Category: Category I Datetime: 02/10/2017 01:38 Contraction Comments: ZERO ADJ. Datetime: 02/10/2017 01:00 Labor Evaluation Frequency: none Monitor Mode: External Duration (sec)2399: none Pattern: Normal: <= 5 Contractions in 10 Minutes Heart Rate FHR Baseline Rate: 130 Monitor Mode: External US FHR Baseline Changes: No Baseline Change Variability: Moderate 6-25 bpm Accelerations: 15X15 Datetime: 02/10/2017 00:00 Labor Evaluation Frequency: X2 Monitor Mode: External Quality: Mild Resting Tone Gisela: Relaxed Heart Rate FHR Baseline Rate: 130 Monitor Mode: External US FHR Baseline Changes: No Baseline Change Variability: Moderate 6-25 bpm Accelerations: 15X15 Category: Category I Datetime: 02/09/2017 23:53 Temperature Route: Oral Pain Assessment Pain Scale: 0 Datetime: 02/09/2017 23:00 Labor Evaluation Frequency: OCC Monitor Mode: External Resting Tone Gisela: Relaxed Heart Rate FHR Baseline Rate: 125 Monitor Mode: External US FHR Baseline Changes: No Baseline Change Variability: Moderate 6-25 bpm Accelerations: 15X15 Decelerations: None Category: Category I Datetime: 02/09/2017 22:00 Labor Evaluation Frequency: x6 Monitor Mode: External Duration (sec)2399: 60-90 Quality: Mild Resting Tone Gisela: Relaxed Heart Rate FHR Baseline Rate: 130 Monitor Mode: External US FHR Baseline Changes: No Baseline Change Variability: Moderate 6-25 bpm Accelerations: 15X15 Decelerations: None Category: Category I Datetime: 02/09/2017 21:00 Labor Evaluation Frequency: x3 Monitor Mode: External Duration (sec)2399: 60 Quality: Mild Resting Tone Gisela: Relaxed Heart Rate FHR Baseline Rate: 140 Monitor Mode: External US FHR Baseline Changes: No Baseline Change Variability: Moderate 6-25 bpm Accelerations: 15X15 Decelerations: None Category: Category I Datetime: 02/09/2017 20:00 Labor Evaluation Frequency: 2-4 Monitor Mode: External Duration (sec)2399: 90 Quality: Mild Resting Tone Gisela: Relaxed Heart Rate FHR Baseline Rate: 130 Monitor Mode: External US FHR Baseline Changes: No Baseline Change Variability: Moderate 6-25 bpm Accelerations: 15X15 Decelerations: None Category: Category I Datetime: 02/09/2017 19:41 Assessment Type: Ongoing Assessment Maternal Assessment Level of Consciousness: Fully Conscious Headache: Denies Blurred Vision: No Respiratory Effort: Unlabored; Regular Rhythm; Equal Expansion Nausea/Vomiting: Denies RUQ Epigastric Pain: Denies Lower Extremities Edema: None Upper Extremities Edema: HANDS 1 + Facial Edema: None Temperature Route: Oral Fall Risk Assessment History of Falling: (0) No Secondary Diagnosis: (0) No Ambulatory Aid: (0) Bedrest/Nurse Assist IV Therapy: (20) Yes Gait: (0) Normal/Bedrest/Immobile Mental Status: (0) Oriented to Own Ability Fall Score: 20 Fall Risk Score Definition: No Risk: No action required Pain Assessment Pain Scale: 0 Datetime: 02/09/2017 17:51 Stage of : OB Triage Datetime: 02/09/2017 17:29 Labor Evaluation Frequency: 3-5 Monitor Mode: External Duration (sec)2399: 60-80 Quality: Mild Pattern: Normal: <= 5 Contractions in 10 Minutes Resting Tone Gisela: Relaxed Heart Rate FHR Baseline Rate: 135 Monitor Mode: External US Variability: Moderate 6-25 bpm Decelerations: None Category: Category I Pain Assessment Pain Scale: 4 Pain Presence: Intermittent Pain Type: Cramping Pain Location: Abdomen Pain Goal: 3 Pain Relief Measures: Comfort Measures Datetime: 02/09/2017 17:24 Stage of : OB Triage Datetime: 02/09/2017 17:16 Vaginal Exam Dilatation (cms): 1.5 Effacement (%): 50 Station: -3 Exam By: S TANA Vaginal Bleeding: None Cervix, Consistency: Soft Cervix, Position: Posterior Datetime: 02/09/2017 16:40 Labor Evaluation Frequency: 3-5 Monitor Mode: External Duration (sec)2399: 60-80 Quality: Mild Pattern: Normal: <= 5 Contractions in 10 Minutes Resting Tone Gisela: Relaxed Heart Rate FHR Baseline Rate: 135 Monitor Mode: External US Variability: Moderate 6-25 bpm Accelerations: 10X10 Decelerations: None Category: Category I Pain Assessment Pain Scale: 5 Pain Presence: Intermittent Pain Type: Cramping Pain Location: Abdomen Pain Goal: 3 Pain Relief Measures: Comfort Measures Datetime: 02/09/2017 15:54 Stage of : OB Triage Datetime: 02/09/2017 15:39 Stage of : OB Triage Assessment Type: Triage Maternal Assessment Level of Consciousness: Fully Conscious DTR's/Clonus: DTRs 2+; No Clonus Headache: Denies Blurred Vision: No Respiratory Effort: Unlabored; Regular Rhythm; Equal Expansion Breath Sounds, Left: Clear and Equal Breath Sounds, Right: Clear and Equal Nausea/Vomiting: Denies RUQ Epigastric Pain: Denies Facial Edema: None Temperature Route: Axillary Fall Risk Assessment History of Falling: (0) No Secondary Diagnosis: (0) No Ambulatory Aid: (0) Bedrest/Nurse Assist IV Therapy: (0) No Gait: (0) Normal/Bedrest/Immobile Mental Status: (0) Oriented to Own Ability Fall Score: 0 Fall Risk Score Definition: No Risk: No action required Labor Evaluation Frequency: 0 Monitor Mode: External Resting Tone Gisela: Relaxed Heart Rate FHR Baseline Rate: 140 Monitor Mode: External US Variability: Moderate 6-25 bpm Accelerations: 10X10 Decelerations: None Category: Category I Pain Assessment Pain Scale: 9 Pain Presence: Intermittent (Annotations: OCCURS OCCASIONALLY WHEN WALKING) Pain Type: Pressure Pain Location: Perineum Pain Goal: 3 Pain Relief Measures: Comfort Measures Datetime: 02/09/2017 15:38 Time of Arrival: 02/09/2017 15:12 EGA: 35.6 Arrived By: Ambulatory Arrived From: Home Chief Complaint: F/U CHOLESTASIS, BILE ACID RESULTS. DENIES BLEEDING OR LEAKING. OCCAS UC'S Movement: Present Contractions: Denies/Absent Rupture of Membranes: Denies Vaginal Bleeding: None Vaginal Discharge: Denies Recent Sexual Intercouse: Denies Abdominal Trauma: Not Applicable Patient Complaints: Cramping Time Provider Notified: 02/09/2017 15:55 Provider Notified: TINO Initial Plan: MONITOR, BPP/DENZEL Datetime: 02/06/2017 02:43 Stage of : OB Triage Heart Rate FHR Baseline Rate: 135 Monitor Mode: External US Variability: Moderate 6-25 bpm Accelerations: 15X15 Category: Category I Pain Assessment Pain Scale: 0 Pain Presence: None/Denies Pain Type: N/A Datetime: 02/06/2017 01:55 Quality: Mild Pattern: Normal: <= 5 Contractions in 10 Minutes Resting Tone Gisela: Relaxed Heart Rate FHR Baseline Rate: 130 Monitor Mode: External US FHR Baseline Changes: No Baseline Change Variability: Moderate 6-25 bpm Accelerations: 15X15 Decelerations: None Category: Category I Pain Assessment Pain Scale: 0 Pain Presence: None/Denies Pain Type: N/A Datetime: 02/06/2017 00:53 Quality: Mild Pattern: Normal: <= 5 Contractions in 10 Minutes Resting Tone Gisela: Relaxed Heart Rate FHR Baseline Rate: 135 Monitor Mode: External US Variability: Moderate 6-25 bpm Accelerations: 15X15 Decelerations: None Category: Category I Datetime: 02/06/2017 00:13 Stage of : OB Triage Monitor Mode: External Pattern: Normal: <= 5 Contractions in 10 Minutes Resting Tone Gisela: Relaxed Heart Rate FHR Baseline Rate: 140 Monitor Mode: External US Variability: Moderate 6-25 bpm Accelerations: 15X15 Decelerations: None Category: Category I Datetime: 02/05/2017 23:20 Stage of : OB Triage Monitor Mode: External Quality: Mild Pattern: Normal: <= 5 Contractions in 10 Minutes Resting Tone Gisela: Relaxed Heart Rate FHR Baseline Rate: 130 Monitor Mode: External US FHR Baseline Changes: No Baseline Change Variability: Moderate 6-25 bpm Accelerations: 15X15 Datetime: 02/05/2017 23:12 Vaginal Exam Dilatation (cms): 0.0 Effacement (%): 0 Station: -4 Exam By: Angie Neri Membrane Status: Intact Vaginal Bleeding: None Cervix, Consistency: Soft Cervix, Position: Posterior Datetime: 02/05/2017 22:50 Stage of : OB Triage Maternal Assessment Level of Consciousness: Fully Conscious Headache: Denies Blurred Vision: No Nausea/Vomiting: Denies RUQ Epigastric Pain: Denies Facial Edema: None Labor Evaluation Frequency: placed Monitor Mode: External Resting Tone Gisela: Relaxed Monitor Mode: External US Comments: FHT 140 Pain Assessment Pain Scale: 2 Pain Presence: Intermittent Pain Type: Cramping Pain Location: Abdomen Datetime: 02/05/2017 22:40 EGA: 35.2 Datetime: 01/05/2017 12:49 Fall Score: 0 Fall Risk Score Definition: No Risk: No action required Datetime: 01/05/2017 12:48 EGA: 30.6
== END 2017-02-15 13:40 | disposition home or self-care (01) ==
LOC: L-D 08:44 → OBT 08:44
PROVIDERS: ATTEND Obstetrics & Gynecology
DX: O26.613 Liver and biliary tract disorders in pregnancy, third trimester (principal); K83.1 Obstruction of bile duct; O26.893 Other specified pregnancy related conditions, third trimester; L29.9 Pruritus, unspecified; Z3A.36 36 weeks gestation of pregnancy
CPT/HCPCS: 76818; 80053

== ENCOUNTER 2017-02-17 08:41 | Inpatient (IN) | payer OTHER ==
[~2017-02-17] VITALS: Ht 167.6 cm; Wt 79.2 kg
[2017-02-17] MEDS ORDERED: FER325 PO (09:05)
[2017-02-17 09:06] VITALS: BP 120/65; PULSE 111; RESP 18
[2017-02-17 09:07] VITALS: Ht 167.6 cm; Wt 79.2 kg
--- NOTE | 2017-02-17 10:23 | RADRPT ---
PROCEDURE: US biophysical profile. CLINICAL INDICATION: Cholestasis. TECHNIQUE: Multiple sonographic images of the uterus were obtained. The images were revi ewed on a PACS workstation. COMPARISON: 02/15/2017. FINDINGS: There is a single live intrauterine gestation. heart rate is 131 beats per minute. The position is cephalic. The placenta is posterior grade II with no abruption or previa. The DENZEL is 8.9 cm. (Normal = 5-20 cm.) Breathing Movement: 2 Gross Body Movement: 2 Tone: 2 Qualitative Amniotic Fluid Volume: 2 TOTAL: 8 IMPRESSION: 1. The biophysical score is 8/8. RPTAT: QQ .Bebo Trevizo MD, MD Date Time Electronically viewed and signed by .Bebo Trevizo MD, on 02/17/2017 10:22 .R/
[2017-02-17 10:27] LABS: ALBUMIN 3.7 g/dl (3.3-4.9); ALBUMIN/GLOBULIN RATIO 1.19; BILIRUBIN,INDIRECT 0.1 mg/dl (0-1.1); BILIRUBIN,TOTAL 0.1 mg/dl (0.2-1.3); CALCIUM 9.4 mg/dl (8.4-10.2); CREATININE 0.49 mg/dl (0.44-1.00); POTASSIUM 4.1 mmol/L (3.5-5.1); TOTAL PROTEIN 6.8 g/dl (6.1-8.1)
--- NOTE | 2017-02-17 10:57 | TRIAGE ---
OB Triage Datetime Report Generated by CPN: 02/17/2017 10:56 Datetime: 02/17/2017 10:41 Vaginal Exam Dilatation (cms): 0.0 Exam By: khemani Vaginal Bleeding: None Cervix, Consistency: Firm Cervix, Position: Midposition Datetime: 02/17/2017 09:01 Assessment Type: Triage Maternal Assessment Level of Consciousness: Fully Conscious DTR's/Clonus: DTRs 2+; No Clonus Headache: Denies Blurred Vision: No Respiratory Effort: Unlabored; Regular Rhythm; Equal Expansion Breath Sounds, Left: Clear and Equal Breath Sounds, Right: Clear and Equal Nausea/Vomiting: Denies RUQ Epigastric Pain: Denies Lower Extremities Edema: None Degree: None Upper Extremities Edema: None Degree: None Facial Edema: None Fall Risk Assessment History of Falling: (0) No Secondary Diagnosis: (0) No Ambulatory Aid: (0) Bedrest/Nurse Assist IV Therapy: (0) No Gait: (0) Normal/Bedrest/Immobile Mental Status: (0) Oriented to Own Ability Fall Score: 0 Fall Risk Score Definition: No Risk: No action required Datetime: 02/17/2017 08:55 Labor Evaluation Monitor Mode: External Heart Rate Monitor Mode: External US Datetime: 02/17/2017 08:44 Time of Arrival: 02/17/2017 08:41 EGA: 37.0 Arrived By: Ambulatory Arrived From: Home Chief Complaint: PT HERE FOR NST/BPP FOR CHOLESTASIS Movement: Present Contractions: Irregular Rupture of Membranes: Denies Vaginal Bleeding: None Vaginal Discharge: Denies Recent Sexual Intercouse: Denies Abdominal Trauma: Not Applicable Patient Complaints: Contractions; Cramping; Back Pain Time Provider Notified: 02/17/2017 08:50 Provider Notified: SUZY Initial Plan: NST/ BPP/CMP Datetime: 02/15/2017 09:29 Fall Score: 0 Fall Risk Score Definition: No Risk: No action required Datetime: 02/15/2017 09:00 EGA: 36.5 Datetime: 02/12/2017 09:52 EGA: 36.2 Fall Score: 0 Fall Risk Score Definition: No Risk: No action required Datetime: 02/12/2017 09:42 EGA: 36.2 Datetime: 02/10/2017 07:45 Fall Score: 20 Fall Risk Score Definition: No Risk: No action required Datetime: 02/09/2017 19:41 Fall Score: 20 Fall Risk Score Definition: No Risk: No action required Datetime: 02/09/2017 15:39 Fall Score: 0 Fall Risk Score Definition: No Risk: No action required Datetime: 02/09/2017 15:38 EGA: 35.6 Datetime: 02/05/2017 22:40 EGA: 35.2 Datetime: 01/05/2017 12:49 Fall Score: 0 Fall Risk Score Definition: No Risk: No action required Datetime: 01/05/2017 12:48 EGA: 30.6
[2017-02-17] MEDS ORDERED: LACTATED RINGER'S 1,000 ML IV PRN (12:43)
[2017-02-17] MEDS ORDERED: OXYTOCIN 30 UNITS/LR 500 ML IV PRN (13:00)
[2017-02-17] MEDS ORDERED: DINOPROSTONE 10 MG VAG SUPP VAG ONE (13:00)
[2017-02-17] MEDS ORDERED: CARBOPROST 250 MCG INJ IM PRN (13:00)
[2017-02-17] MEDS ORDERED: AMPICILLIN 2 GM/NS (PMX) 100 ML IV ONE (13:00)
[2017-02-17] MEDS ORDERED: IBUPROFEN 600 MG TAB PO PRN (13:00)
[2017-02-17] MEDS ORDERED: METHYLERGONOVINE 0.2 MG INJ IM PRN (13:00)
[2017-02-17] MEDS ORDERED: LIDOCAINE 1% (MPF) 30 ML INJ INJ PRN (13:00)
[2017-02-17] MEDS ORDERED: MISOPROSTOL 200 MCG TAB PR PRN (13:00)
[2017-02-17] MEDS ORDERED: OXYTOCIN 30 UNITS/LR 500 ML IV SCH (13:00)
--- NOTE | 2017-02-17 13:14 | HP ---
Date/Time of Note Date/Time of Note DATE: 02/17/17 TIME: 13:12 OB - History Hx of Present Free Text/Dictation 37+wks GA with Cholestasis of Care: Good Care Ultrasounds: Normal mid trimester US Obstetrical Complications: Other Past Family/Social History * Past Medical, Surgical, Family and Obstetric Histories reviewed from chart. OB Admission Exam Vital Signs Vital Signs Vital Signs Date Time Temp Pulse Resp B/P Pulse Ox O2 Delivery O2 Flow Rate FiO2 02/17/17 09:06 98.7 111 18 120/65 96 Room Air Physical Exam Abdomen: WNL Reflexes: Normal Cervical Dilatation: None Effacement: 0% Station: -3 Membranes: Intact Heart Rate: 140's Accelerations: Accelerations Present Decelerations: No Decelerations Varibility: Moderate Contractions on Admission: 6-10 Minutes Apart Last 72 hours Lab Results CBC & BMP 02/17/17 09:15 Liver Function Test 02/17/17 09:15 Alanine Aminotransferase (ALT/SGPT) 21 Albumin 3.7 Alkaline Phosphatase 224 H Aspartate Amino Transf (AST/SGOT) 15 Direct Bilirubin 0.00 Total Protein 6.8 OB Assessment/Plan Reason for admission: induction of labor Induction Method: other (cevidil) JUDITH JIMÉNEZ M.D. Feb 17, 2017 13:14
[2017-02-17] MEDS: LACTATED RINGER'S 1,000 ML IV SCH ×2 (13:26→17:57)
[2017-02-17 14:24] LABS: ADD SCAN DIFF NO
[2017-02-17 14:27] LABS: BASOPHILS % 0.2 % (0.0-2.0); EOSINOPHILS # 0.1 10^3/ul (0.0-0.5); EOSINOPHILS % 1.3 % (0.0-7.0); HEMATOCRIT 32.5 % (37.0-47.0); HEMOGLOBIN 10.2 g/dl (12.0-16.0); LYMPHOCYTES # 2.2 10^3/ul (0.8-2.9); LYMPHOCYTES % 23.8 % (15.0-51.0); MEAN CORPUSCULAR HEMOGLOBIN 25.2 pg (29.0-33.0); MEAN CORPUSCULAR HGB CONC 31.4 g/dl (32.0-37.0); MEAN CORPUSCULAR VOLUME 80.2 fl (82.0-101.0); MEAN PLATELET VOLUME 10.3 fl (7.4-10.4); MONOCYTE # 0.7 10^3/ul (0.3-0.9); MONOCYTES % 7.4 % (0.0-11.0); NEUTROPHIL # 6.3 10^3/ul (1.6-7.5); NEUTROPHILS % 66.2 % (39.0-77.0); PLATELET COUNT 395 10^3/UL (140-415); RED BLOOD COUNT 4.05 10^6/ul (4.20-5.40); RED CELL DISTRIBUTION WIDTH 14.1 % (11.5-14.5); WHITE BLOOD COUNT 9.4 10^3/ul (4.8-10.8)
[2017-02-17 14:29] LABS: INR 0.96; PROTIME 12.8 Sec (12.2-14.2)
[2017-02-17 14:30] LABS: PARTIAL THROMBOPLASTIN TIME 26.4 Sec (25.0-35.0)
[2017-02-17] MEDS: URSODIOL 300 MG CAP PO SCH ×2 (16:43→21:03)
[2017-02-17] MEDS ORDERED: AMPICILLIN 1 GM/NS (PMX) 50 ML IV SCH (17:00)
[2017-02-17] MEDS: BUTORPHANOL 2 MG INJ IV PRN ×2 (17:39→21:50)
[2017-02-17] MEDS ORDERED: URSODIOL 300 MG CAP PO SCH (21:00)
--- NOTE | 2017-02-17 22:47 | HP ---
Date/Time of Note Date/Time of Note DATE: 02/17/17 TIME: 22:40 OB - History Hx of Present Free Text/Dictation 26y.o who is dxed to have cholestasis on ursordil at 37 weeks here for antepartum test of which result were nl but perinatalogist reccommand to induction of labor. admitted for induction of labor by cervidil Chief Complaint: induction of labor for cholestasis Estimated Due Date: Mar 10, 2017 : 3 Para: 1 Spontaneous : 0 Therapeutic : 1 Care: Good Care Ultrasounds: Normal mid trimester US Obstetrical Complications: Other (cholestasis) Medical Complications: None Past Family/Social History * Past Medical, Surgical, Family and Obstetric Histories reviewed from chart. Blood Type: B+ Rubella: immune RPR/VDRL: Negative GBS Status: Negative HBsAG: Negative OB Admission Exam Vital Signs Vital Signs Vital Signs Date Time Temp Pulse Resp B/P Pulse Ox O2 Delivery O2 Flow Rate FiO2 02/17/17 09:06 98.7 111 18 120/65 96 Room Air Physical Exam HEENT: WNL Heart: Rhythm Normal Lungs: Clear, Equal Abdomen: WNL Extremities: Normal Reflexes: Normal Cervical Dilatation: None Effacement: 0% Station: -3 Membranes: Intact Amniotic Fluid: Unevaluable Heart Rate: 140's Accelerations: Accelerations Present Decelerations: No Decelerations Varibility: Moderate Last 72 hours Lab Results CBC & BMP 02/17/17 09:15 Liver Function Test 02/17/17 09:15 Alanine Aminotransferase (ALT/SGPT) 21 Albumin 3.7 Alkaline Phosphatase 224 H Aspartate Amino Transf (AST/SGOT) 15 Direct Bilirubin 0.00 Total Protein 6.8 OB Assessment/Plan Reason for admission: induction of labor Other Assessment: IUP 37WEEKS CHOLESTASIS Plan: Induction Induction Method: per Misoprostol Protocol CATHY ALMONTE MD Feb 17, 2017 22:46
--- NOTE | 2017-02-17 22:48 | QN ---
Documentation Comment ARM done clear mod amount fluid cx 3cm post 5o% -2 cervidil removed CATHY ALMONTE MD Feb 17, 2017 22:48
[2017-02-17] MEDS ORDERED: FENTAnyl 2MCG/ML-ROPIV 0.2% 100 ML ONE (23:08)
[2017-02-18] MEDS ORDERED: EPHEDrine SULFATE 50 MG/5 ML SYG IV PRN
[2017-02-18] MEDS ORDERED: DIPHENHYDRAMINE 50 MG INJ IV PRN
[2017-02-18] MEDS ORDERED: NALOXONE (0.4 MG/ML) INJ IV PRN
[2017-02-18] MEDS ORDERED: ONDANSETRON 4 MG INJ IV PRN
[2017-02-18] MEDS ORDERED: FENTAnyl 2MCG/ML-ROPIV 0.2% 100 ML BAG EPI SCH
[2017-02-18] MEDS: OXYTOCIN 30 UNITS/LR 500 ML IV SCH ×2 (01:00→02:36)
--- NOTE | 2017-02-18 01:33 | LDN ---
Date/Time of Note Date/Time of Note DATE: 02/18/17 TIME: 01:29 Delivery Summary cholestasis at 37 w induction normal vaginal delivery Weeks of Gestation 37weeks 1d Placenta Delivered: Spontaneously Meconium: none Episiotomy: No Perineal laceration: 0 Anesthesia type: Epidural Estimated blood loss: 200 Sponge & Needle done & correct: Yes All needle counts correct: Yes Any foreign bodies felt in the: No Problems: Infant Delivery Information Sex Sex: female Apgars 1 Minute: 8 5 Minute: 9 Suctioning Nose & mouth suctioned at horacio: Yes Delee suction performed: No Umbilical Cord Umbilical cord with: 3 Vessels Cord presentations: nuchal cord Nuchal cord present X: 1 Cord Blood was obtained: Yes Mother & Baby Disposition Disposition Mom & Baby to Maternity; Good: Yes Mom transferred to: Other (postparatum) Baby to NICU: No CATHY ALMONTE MD Feb 18, 2017 01:33
[2017-02-18 03:15] VITALS: BP 124/65; PULSE 100; RESP 18
[2017-02-18] MEDS ORDERED: ZOLPIDEM 5 MG TAB PO PRN (04:00)
[2017-02-18] MEDS ORDERED: LANOLIN 7 GM TUBE TOP PRN (04:00)
[2017-02-18] MEDS ORDERED: OXYTOCIN 30 UNITS/LR 500 ML IV PRN (04:00)
[2017-02-18] MEDS ORDERED: BENZOCAINE 20% 56 ML SPRAY TOP PRN (04:00)
[2017-02-18] MEDS ORDERED: CARBOPROST 250 MCG INJ IM PRN (04:00)
[2017-02-18] MEDS ORDERED: MISOPROSTOL 200 MCG TAB PR PRN (04:00)
[2017-02-18] MEDS ORDERED: METHYLERGONOVINE 0.2 MG INJ IM PRN (04:00)
[2017-02-18] MEDS ORDERED: OXYCODONE/ASPIRIN (4.88/325) TAB PO PRN ×2 (04:00)
[2017-02-18] MEDS ORDERED: WITCH HAZEL/GLYCERIN PAD PR PRN (04:00)
[2017-02-18 05:07] VITALS: BP 120/62; PULSE 103; RESP 18
[2017-02-18] MEDS: IBUPROFEN 600 MG TAB PO SCH ×3 (05:52→17:46)
[2017-02-18 08:15] VITALS: BP 113/68; PULSE 106; RESP 19
[2017-02-18] MEDS: SENNA/DOCUSATE NA (8.6MG/50MG) TAB PO SCH ×2 (09:50→21:30)
[2017-02-18 16:00] VITALS: BP 142/66; PULSE 92; RESP 20
[2017-02-18 19:55] VITALS: BP 119/65; PULSE 100; RESP 18
[2017-02-19] MEDS: IBUPROFEN 600 MG TAB PO SCH ×5 (00:11→23:24)
[2017-02-19 04:00] VITALS: BP 114/63; PULSE 81; RESP 18
[2017-02-19 08:00] VITALS: BP 132/80; PULSE 91; RESP 20
[2017-02-19 08:08] LABS: ADD SCAN DIFF NO
[2017-02-19 08:15] LABS: BASOPHILS % 0.3 % (0.0-2.0); EOSINOPHILS # 0.1 10^3/ul (0.0-0.5); EOSINOPHILS % 0.9 % (0.0-7.0); HEMATOCRIT 31.2 % (37.0-47.0); HEMOGLOBIN 9.6 g/dl (12.0-16.0); LYMPHOCYTES # 2.7 10^3/ul (0.8-2.9); LYMPHOCYTES % 22.8 % (15.0-51.0); MEAN CORPUSCULAR HEMOGLOBIN 24.8 pg (29.0-33.0); MEAN CORPUSCULAR HGB CONC 30.8 g/dl (32.0-37.0); MEAN CORPUSCULAR VOLUME 80.6 fl (82.0-101.0); MEAN PLATELET VOLUME 10.6 fl (7.4-10.4); MONOCYTE # 0.8 10^3/ul (0.3-0.9); MONOCYTES % 6.4 % (0.0-11.0); NEUTROPHIL # 8.2 10^3/ul (1.6-7.5); NEUTROPHILS % 68.7 % (39.0-77.0); PLATELET COUNT 353 10^3/UL (140-415); RED BLOOD COUNT 3.87 10^6/ul (4.20-5.40); RED CELL DISTRIBUTION WIDTH 14.6 % (11.5-14.5)
[2017-02-19] MEDS: SENNA/DOCUSATE NA (8.6MG/50MG) TAB PO SCH ×2 (09:00→21:43)
--- NOTE | 2017-02-19 13:47 | PN ---
Date/Time of Note Date/Time of Note DATE: 02/19/17 TIME: 13:45 OB Subjective Subjective Subjective doing fine OB Objective Objective Objective vss afebrile fundus firm lochia min ext neg OB Assessment/Plan Other Assessment: s/p normal vaginal delivery Other plan: d/s home in am CATHY ALMONTE MD Feb 19, 2017 13:47
[2017-02-19 16:00] VITALS: BP 134/76; PULSE 85; RESP 20
[2017-02-19 19:30] VITALS: BP 123/71; PULSE 87; RESP 20
[2017-02-20 03:43] VITALS: BP 121/64; PULSE 70; RESP 20
[2017-02-20] MEDS: IBUPROFEN 600 MG TAB PO SCH ×3 (05:18→18:12)
[2017-02-20 07:50] VITALS: BP 132/75; PULSE 81; RESP 19
[2017-02-20] MEDS ORDERED: DIPHTH/TET/ACEL PERTUSS (ADULT) 0.5 ML VIAL IM* ONE (09:00)
[2017-02-20] MEDS: SENNA/DOCUSATE NA (8.6MG/50MG) TAB PO SCH (09:00)
[2017-02-20 16:00] VITALS: BP 134/70; PULSE 85; RESP 19
--- NOTE | 2017-02-20 17:43 | PD.PPDC ---
[employer] Discharge Instruction Diagnosis Final Diagnosis: s/p normal vaginal delivery Condition Patient Condition: Stable Diet Diet: Resume Regular Diet Activity/Restrictions Activity: May Shower Restrictions: No Sexual Activity Nothing in the Vagina No Isabel No Tampons, douche Follow-up Follow-up with Physician: 6, Week/Weeks Return to clinic for [employer] DIRECTOR Instructions: Fever greater than 101 Chills Worsening abdominal pain Excessive Vaginal Bleeding More than 2 pads per hour Unable to tolerate diet OB Instructions: Breast Tenderness Depression Blurried Vision Headache CATHY ALMONTE MD Feb 20, 2017 17:43
--- NOTE | 2017-02-20 17:49 | DS ---
Date/Time of Note Date/Time of Note DATE: 02/20/17 TIME: 17:47 Obstetrical Discharge Record Final Diagnosis Final Diagnosis: Term delivered Vaginal Delivery Obstetrical Delivery: Spontaneous Complications Induction: Yes Condition on Discharge Physical Assessment Last Vitals: vss afebrile fundus firm lohia min calf neg for tenderness Voiding: Yes Bowel Movement: Yes Breast: Soft, non-tender Fundus: Firm Calf Tenderness: No Patient Condition: Stable CATHY ALMONTE MD Feb 20, 2017 17:49
== END 2017-02-20 19:02 | disposition home or self-care (01) | DRG 775 ==
LOC: OBT 08:41 → L-D 08:42 → OBT 11:00 → L-D 11:02 → PP1 02-18 03:15
PROVIDERS: ADMIT Obstetrics & Gynecology; ATTEND Obstetrics & Gynecology
PROC: 3E0P7GC Introduction of Other Therapeutic Substance into Female Reproductive, Via Natural or Artificial Opening (ICD-10-PCS; 2017-02-17)
PROC: 4A1HX4Z Monitoring of Products of Conception, Cardiac Electrical Activity, External Approach (ICD-10-PCS; 2017-02-17)
PROC: 10E0XZZ Delivery of Products of Conception, External Approach (ICD-10-PCS; principal; 2017-02-18)
PROC: 3E0234Z Introduction of Serum, Toxoid and Vaccine into Muscle, Percutaneous Approach (ICD-10-PCS; 2017-02-20)
DX: O26.62 Liver and biliary tract disorders in childbirth (principal); K83.1 Obstruction of bile duct; Z3A.37 37 weeks gestation of pregnancy; Z37.0 Single live birth; O69.81X0 Labor and delivery complicated by cord around neck, without compression, not applicable or unspecified; Z23 Encounter for immunization
CPT/HCPCS: 36415; 62319; 76818; 80053; 85025; 85610; 85730; 86592; 86900; 86901; 87340; 90715; G0463; J0595; J2590; J3010; J7120

== ENCOUNTER 2018-01-04 06:02 | Day surgery (SDC) | END 2018-01-04 10:10 | disposition home or self-care (01) ==